=== PATIENT | female | born 1950 | race Two or more races ===

== ENCOUNTER 2017-02-16 08:49 | Outpatient (CLI) | payer BC ==
[~2017-02-16 08:49] MED LIST: ASPIRIN81 M3 PO; CYTOMEL25 MCG ORAL; MULTIVITAMINS1 EA14 PO; SYNTHROID100 MCG ORAL; VITAMIN D1000 UNI1 ORAL
== END 2017-02-16 10:49 | disposition home or self-care (01) ==
LOC: MAMMO 08:49
DX: Z12.31 Encounter for screening mammogram for malignant neoplasm of breast (principal)
CPT/HCPCS: 77067